=== PATIENT | female | born 2000 | race Hispanic/Latino ===

== ENCOUNTER 2021-03-07 17:10 | Emergency (ER) | payer SELFPAY ==
[~2021-03-07] VITALS: Ht 160 cm; Wt 79.5 kg
[2021-03-07 18:09] LABS: HEMATOCRIT 37.9 % (37.0-47.0); HEMOGLOBIN 12.5 g/dl (12.0-16.0); IMMATURE GRANULOCYTES 0.3 % (0.0-5.0); MEAN CELL VOLUME 84.6 fL CALC (80.0-100.0); MEAN CORPUSCULAR HGB 27.9 pG CALC (26.0-32.0); NEUT# 7.73 thou/uL (2.00-7.15); RED BLOOD COUNT 4.48 mill/uL (4.20-5.60); RED CELL DISTRI WIDTH 13.6 % (11.5-15.5)
[2021-03-07 18:22] LABS: ALBUMIN 4.3 g/dL (3.2-5.0); ALKALINE PHOSPHATASE 81 u/l (38-126); ANION GAP 13 (6-22 (CALC)); BILIRUBIN, TOTAL 0.2 mg/dL (0.0-1.4); BUN 5 mg/dL (7-17); BUN/CREATININE RATIO 10 (12-20 (CALC)); CARBON DIOXIDE 24 mmol/l (22-30); CHLORIDE 104 mmol/l (95-108); CREATININE 0.6 mg/dL (0.5-1.0); GFR > 60 ML/MIN (>=60 (CALC)); GFR FOR AFR.AMER. > 60 ML/MIN (>=60 (CALC)); POTASSIUM 3.8 mmol/l (3.5-5.1); SGOT/AST 27 u/l (14-36); SODIUM 138 mmol/l (137-146); TOTAL PROTEIN 7.7 g/dL (6.3-8.2)
[2021-03-07 19:08] VITALS: BP 128/78
== END 2021-03-07 19:21 | disposition home or self-care (01) | DRG 313 ==
LOC: ED 17:10
PROVIDERS: Family Medicine
DX: R07.9 Chest pain, unspecified (principal); Z20.822 Contact with and (suspected) exposure to COVID-19

== ENCOUNTER 2021-06-21 21:39 | Emergency (ER) | payer SELFPAY ==
[~2021-06-21] VITALS: Ht 157.5 cm; Wt 77.0 kg
[2021-06-21 23:33] LABS: HEMATOCRIT 39.6 % (37.0-47.0); HEMOGLOBIN 12.7 g/dl (12.0-16.0); IMMATURE GRANULOCYTES 0.2 % (0.0-5.0); MEAN CELL VOLUME 86.7 fL CALC (80.0-100.0); MEAN CORPUSCULAR HGB 27.8 pG CALC (26.0-32.0); MEAN CORPUSCULAR HGB CONC 32.1 g/dL CAL (32.0-36.0); NEUT# 6.59 thou/uL (2.00-7.15); RED BLOOD COUNT 4.57 mill/uL (4.20-5.60); RED CELL DISTRI WIDTH 13.1 % (11.5-15.5)
[2021-06-21 23:49] LABS: URINE BILIRUBIN - DIPSTICK NEGATIVE (NEGATIVE); URINE BLOOD DIPSTICK NEGATIVE (NEGATIVE); URINE COLOR YELLOW; URINE GLUCOSE - DIPSTICK NEGATIVE (NEGATIVE); URINE KETONE NEGATIVE (NEGATIVE); URINE LEUK ESTERASE NEGATIVE (NEGATIVE); URINE PROTEIN - DIPSTICK NEGATIVE (NEG-TRACE); URINE SPECIFIC GRAVITY 1.025; URINE UROBILINOGEN - DIPSTICK 0.2 E.U./dL (0.2)
[2021-06-21 23:53] LABS: URINE NITRITE - DIPSTICK NEGATIVE (Negative)
[2021-06-21 23:54] LABS: ALBUMIN 4.4 g/dL (3.2-5.0); ALKALINE PHOSPHATASE 78 u/l (38-126); ANION GAP 9 (6-22 (CALC)); BUN 11 mg/dL (7-17); BUN/CREATININE RATIO 20 (12-20 (CALC)); CARBON DIOXIDE 26 mmol/l (22-30); CHLORIDE 105 mmol/l (95-108); CREATININE 0.6 mg/dL (0.5-1.0); GFR > 60 ML/MIN (>=60 (CALC)); GFR FOR AFR.AMER. > 60 ML/MIN (>=60 (CALC)); POTASSIUM 4.3 mmol/l (3.5-5.1); SGOT/AST 28 u/l (14-36); SODIUM 136 mmol/l (137-146); TOTAL PROTEIN 7.8 g/dL (6.3-8.2)
[2021-06-21 23:56] LABS: BILIRUBIN, TOTAL 0.4 mg/dL (0.0-1.4)
[2021-06-22] MEDS ORDERED: FLONASE AL50 MCG/ACT (01:55)
[2021-06-22] MEDS ORDERED: FIORICET PO (01:55)
[2021-06-22 02:01] VITALS: BP 107/58
== END 2021-06-22 02:07 | disposition home or self-care (01) | DRG 153 ==
LOC: ED 21:39
PROVIDERS: Emergency Medicine
DX: J32.9 Chronic sinusitis, unspecified (principal); J45.909 Unspecified asthma, uncomplicated; Z20.822 Contact with and (suspected) exposure to COVID-19

== ENCOUNTER 2022-01-15 21:07 | Emergency (ER) | payer SELFPAY ==
[~2022-01-15] VITALS: Ht 157.5 cm; Wt 70.0 kg
[~2022-01-15 21:07] MED LIST: FIORICET PO; FLONASE AL50 MCG/ACT
[2022-01-15] MEDS ORDERED: DOXYCYCLINE100 MG PO (21:59)
[2022-01-15] MEDS ORDERED: HYDROCO/APAP1 TA9 PO (21:59)
[2022-01-15 22:02] VITALS: BP 122/84
== END 2022-01-15 22:12 | disposition home or self-care (01) | DRG 607 ==
LOC: ED 21:07
DX: L73.9 Follicular disorder, unspecified (principal); J45.909 Unspecified asthma, uncomplicated

== ENCOUNTER 2022-01-18 21:20 | Emergency (ER) | payer SELFPAY ==
[~2022-01-18] VITALS: Ht 157.5 cm; Wt 154.0 kg
[~2022-01-18 21:20] MED LIST changes: +DOXYCYCLINE100 MG PO; +HYDROCO/APAP1 TA9 PO
[2022-01-18 21:30] VITALS: BP 129/96
[2022-01-18 22:01] VITALS: BP 102/60
[2022-01-18] MEDS ORDERED: KEFLEX500 MG PO (22:21)
[2022-01-18] MEDS ORDERED: BACTRIM DS1 TAB PO (22:21)
[2022-01-18 22:28] VITALS: BP 102/60
[2022-01-19] MEDS ORDERED: LORTAB 1010 MG PO (21:36)
== END 2022-01-18 22:32 | disposition home or self-care (01) | DRG 603 ==
LOC: ED 21:20
PROC: 0H9JXZZ Drainage of Left Upper Leg Skin, External Approach (ICD-10-PCS; principal; 2022-01-18)
DX: L02.416 Cutaneous abscess of left lower limb (principal); J45.909 Unspecified asthma, uncomplicated

== ENCOUNTER 2022-01-19 20:46 | Emergency (ER) | payer SELFPAY ==
[~2022-01-19] VITALS: Ht 157.5 cm; Wt 70.0 kg
[~2022-01-19 20:46] MED LIST changes: +BACTRIM DS1 TAB PO; +KEFLEX500 MG PO
[2022-01-19 21:15] VITALS: BP 110/69
[2022-01-19 21:30] VITALS: BP 106/70
[2022-01-19] MEDS ORDERED: LORTAB 1010 MG PO (21:36)
[2022-01-19 21:46] VITALS: BP 106/70
== END 2022-01-19 21:52 | disposition home or self-care (01) | DRG 951 ==
LOC: ED 20:46
DX: Z48.01 Encounter for change or removal of surgical wound dressing (principal); J45.909 Unspecified asthma, uncomplicated

== ENCOUNTER 2022-01-21 16:45 | Emergency (ER) | payer SELFPAY ==
[~2022-01-21] VITALS: Ht 157.5 cm; Wt 70.3 kg
[~2022-01-21 16:45] MED LIST changes: +LORTAB 1010 MG PO
[2022-01-21 16:53] VITALS: BP 122/73
[2022-01-21 17:31] VITALS: BP 124/107
== END 2022-01-21 17:41 | disposition home or self-care (01) | DRG 951 ==
LOC: ED 16:45
DX: Z48.01 Encounter for change or removal of surgical wound dressing (principal); J45.909 Unspecified asthma, uncomplicated